=== PATIENT | male | born 1985 | race Two or more races ===

== ENCOUNTER 2024-03-08 18:50 | Emergency (ER) | payer OTHER ==
[~2024-03-08] VITALS: Ht 167.6 cm; Wt 77.3 kg
[2024-03-08 19:33] VITALS: BP 110/60; PULSE 69; RESP 15; O2SAT 99
[2024-03-08] MEDS: LIDOcaine 1% W/epiNEPHrine 1:100,000 20ml vial SQ ONE (20:00)
[2024-03-08] MEDS: acetaminophen 325mg tablet PO ONE (20:03)
[2024-03-08] MEDS: ceFAZolin 1gm IM kit IM STA (21:51)
== END 2024-03-08 23:24 | disposition home or self-care (01) ==
LOC: ER 18:52
DX: S61.412A Laceration without foreign body of left hand, initial encounter (principal); W22.8XXA Striking against or struck by other objects, initial encounter; Y93.23 Activity, snow (alpine) (downhill) skiing, snowboarding, sledding, tobogganing and snow tubing; Y92.89 Other specified places as the place of occurrence of the external cause; Y99.8 Other external cause status
CPT/HCPCS: 12002; 73110; 96372; 99283; A6222; J0690; A6446; A6449